=== PATIENT | female | born 1995 | race African-American/Black ===

== ENCOUNTER 2021-11-07 19:13 | Emergency (ER) | payer OTHER ==
[2021-11-07 19:28] VITALS: BP 119/73; PULSE 78; TEMP 97; BMI 22.6
[2021-11-07 21:04] LABS: BASO % 0.8 % (0-2.0); EOS % 0.6 % (0-4.5); HEMATOCRIT 38.1 % (32.4-45.2); HEMOGLOBIN 12.8 GM/dL (10.7-15.3); LYMPH % 27.2 % (8-40); MCH 31.2 pg (25.7-33.7); MCHC 33.7 g/dl (32.0-36.0); MEAN CELL VOLUME 92.6 fl (80-96); MEAN PLT VOLUME 8.2 fl (7.5-11.1); MONO % 7.2 % (3.8-10.2); NEUT % 64.2 % (42.8-82.8); PLATELET COUNT 278 10^3/uL (134-434); RBC 4.11 M/mm3 (3.60-5.2); RDW 12.7 % (11.6-15.6); WHITE BLOOD COUNT 12.4 K/mm3 (4.0-10.0)
[2021-11-07 21:22] LABS: CALCIUM 8.7 mg/dL (8.5-10.1)
[2021-11-07 21:23] LABS: ALBUMIN 3.5 g/dl (3.4-5.0)
[2021-11-07 21:26] LABS: CREATININE 0.9 mg/dL (0.55-1.3)
[2021-11-07 21:27] LABS: TOT PROT 7.4 g/dl (6.4-8.2)
[2021-11-07 21:28] LABS: BILIRUBIN,TOTAL 0.5 mg/dL (0.2-1)
[2021-11-07 23:42] LABS: HCG,QUALITATIVE URINE Positive
[2021-11-07 23:43] LABS: URINE APPEARANCE CLEAR; URINE BILIRUBIN NEGATIVE (NEGATIVE); URINE COLOR YELLOW; URINE GLUCOSE (UA) NEGATIVE (NEGATIVE); URINE KETONE TRACE (NEGATIVE); URINE LEUK ESTERASE NEGATIVE (NEGATIVE); URINE NITRITE NEGATIVE (NEGATIVE); URINE PROTEIN NEGATIVE (NEGATIVE)
== END 2021-11-08 01:22 | disposition home or self-care (01) ==
LOC: JER 19:13
DX: O20.0 Threatened abortion (principal); Z3A.01 Less than 8 weeks gestation of pregnancy
CPT/HCPCS: 36415; 76817-TC; 80053; 81003; 84703; 85025; 86850; 86900; 86901; 87086; 99284-25